=== PATIENT | male | born 1985 | race Two or more races ===

== ENCOUNTER 2017-02-19 13:30 | Emergency (ER) | payer OTHER ==
[2017-02-19 13:48] VITALS: BP 126/87; PULSE 91; TEMP 98.3; BMI 38.0
[2017-02-19] MEDS ORDERED: IBUPROFEN 400 MG TABLET (FP) PO ONE (13:53)
[2017-02-19] MEDS ORDERED: IBUPROFEN 600 MG TABLET (FP) PO ONE (13:56)
--- NOTE | 2017-02-19 13:56 | PDOC ---
History of Present Illness - General Chief Complaint: Pain Stated Complaint: PAINFUL RIGHT WRIST Time Seen by Provider: 02/19/17 13:35 History Source: Patient Exam Limitations: No Limitations - History of Present Illness Initial Comments: 02/19/17 13:50 31y M no signficant pmhx presents for complaint of evaluation of R wrist pain. Pt states that approx 1 month ago, he had atraumatic R wrist pain/swelling - it was thought to be due to an infection so he was treadted with abx with improvement. The sypmtoms resolved, but 2 days ago, he started developing a bit of aching on his right wrist, and has gradually worsend. The pt notes a small bit of swelling but not as bad as 1 month ago. pt denies any recent trauma , injuries, heavy lifting. 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 pt denies any fever/chills, joint pain in other areas, back pain, n/v. no recent illnesses/uris. Past History - Past Medical History Allergies/Adverse Reactions: Allergies Allergy/AdvReac Type Severity Reaction Status Date / Time No Known Allergies Allergy Verified 02/19/17 13:32 Home Medications: Ambulatory Orders NK [No Known Home Medication] 02/19/17 Other medical history: DENIES - Immunization History Td Vaccination: No - Suicide/Smoking/Psychosocial Hx Smoking Status: No Smoking History: Current some day smoker Years of Tobacco Use: 0 Have you smoked in the past 12 months: Yes Number of Cigarettes Smoked Daily: 0 Cigars Per Day: 1 Information on smoking cessation initiated: Yes 'Breaking Loose' booklet given: 02/19/17 Hx Alcohol Use: Yes (SOCIAL) Drug/Substance Use Hx: No Substance Use Type: Alcohol Review of Systems - Review of Systems Able to Perform ROS?: Yes Comments:: 02/19/17 13:53 Constitutional - no reported Fever, Chills, HEENT: no reported vision changes, sore throat Respiratory: no reported cough, sob, hemoptysis Abd/GI: no reported abd pain, nausea, vomiting, Musculskelatal - +R wrist pain no reported back pain, joint swelling skin - no reported bruising, erythema, rash neurological: no reported headache, numbness, focal weakness, tingling, ataxia, hematologic: no reported anemia, easy bruising, easy bleeding *Physical Exam - Vital Signs Last Vital Signs Temp Pulse Resp BP Pulse Ox 98.3 F 91 H 16 126/87 97 02/19/17 13:32 02/19/17 13:32 02/19/17 13:32 02/19/17 13:32 02/19/17 13:32 - Physical Exam Comments: 02/19/17 13:54 GENERAL: The patient is awake, alert, and fully oriented, Nontoxic - in no acute distress. EXTREMITIES: Normal range of motion of upper extremities and lower extremities with the exception of wrist flexion of R hand, limited due to pain. +mild tenderness to palpation of R midwrist without any palable crepitus/lesions, no erythema/warmth, mild edema, pulses symmetric, sensation symmetric. SKIN: Warm, Dry, normal turgor, Medical Decision Making - Medical Decision Making 02/19/17 13:56 unclear cause of his wrist pain small effusion/swelling noted no erythema/warmth/induration to suggestive infective cause will ck xray will giv e motrin if persisetnt and neg xray, willhave pt fu with ortho 02/19/17 14:15 xray negative for acute pathology will recommend supportive measures and ortho fu if pain persistent/recurrnt return precautions were discussed I discussed the physical exam findings, ancillary test results and final diagnoses with the patient. I answered all of the patient's questions. The patient was satisfied with the care received and felt comfortable with the discharge plan and treatment plan. The patient will call their primary care physician within 24 hours to arrange follow-up and will return to the Emergency Department with any new, persistent or worsening symptoms. *DC/Admit/Observation/Transfer Diagnosis at time of Disposition: Right wrist pain - Discharge Dispostion Disposition: HOME Condition at time of disposition: Stable Admit: No - Referrals Referrals: Nghia Talbot MD [Staff Physician] - - Patient Instructions Printed Discharge Instructions: DI for Wrist Pain Additional Instructions: Return to the emergency department immediately with ANY new, persistent or worsening symptoms. Rest, avoid any heavy lifting/sports with your wrist. Take ibuprofen 400mg four times daily for 3-4 days. If the pain does not improve or worsens, follow up with your primary care doctor or an orthopedics for further evaluation. Results were discussed with you. Please make sure your doctor reviews the results of your emergency evaluation. If you had any xrays during your visit, it was read preliminarily by myself, a Radiologist will review it and if there are any additional findings we will call you. Print Language: IRISH
== END 2017-02-19 14:28 | disposition home or self-care (01) ==
LOC: FER 13:30
PROC: 2W3CX1Z Immobilization of Right Lower Arm using Splint (ICD-10-PCS; principal; 2017-02-19)
DX: M25.531 Pain in right wrist (principal)
CPT/HCPCS: 73110-TC-RT; 99282-25

== ENCOUNTER 2018-06-30 23:23 | Emergency (ER) | payer OTHER ==
--- NOTE | 2018-06-30 23:27 | PDOC ---
History of Present Illness - General History Source: Patient Exam Limitations: No Limitations - History of Present Illness Initial Comments: 06/30/18 23:55 The patient is a 32 year old male with no reported past medical history presents to the emergency department with right hand swelling. The patient presents with 1 day of right hand swelling that initially presents to the wrist. The patient reports the symptoms worsened into swelling and warmth over the hand The patient reports putting icy hot on the hand, without relief. The patient reports a similar incident in the past, which was caused by a toxic caterpillar, was treated with oral abx and topical cream. <Angela Montero - Last Filed: 06/30/18 23:54> <Yossi Spence - Last Filed: 07/01/18 05:36> - General Chief Complaint: Redness To Affected Area Stated Complaint: LT HAND REDNESS/SWELLING Time Seen by Provider: 06/30/18 23:27 Past History <Angela Montero - Last Filed: 06/30/18 23:54> - Immunization History Td Vaccination: No - Suicide/Smoking/Psychosocial Hx Smoking Status: No Smoking History: Current some day smoker Years of Tobacco Use: 0 Have you smoked in the past 12 months: Yes Number of Cigarettes Smoked Daily: 0 Cigars Per Day: 1 'Breaking Loose' booklet given: 02/19/17 Hx Alcohol Use: Yes (SOCIAL) Drug/Substance Use Hx: No Substance Use Type: Alcohol <Yossi Spence - Last Filed: 07/01/18 05:36> - Past Medical History Allergies/Adverse Reactions: Allergies Allergy/AdvReac Type Severity Reaction Status Date / Time No Known Allergies Allergy Verified 02/19/17 13:32 Home Medications: Ambulatory Orders Cephalexin [Keflex] 500 mg PO QID #40 capsule 06/30/18 Ibuprofen [Motrin -] 800 mg PO TID PRN #30 tablet 06/30/18 Review of Systems - Review of Systems Able to Perform ROS?: Yes Comments:: 06/30/18 23:55 General: No fevers or chills, no weakness, no weight loss Musculoskeletal: +right hand swelling, redness and warmth. No joint or muscle pain or swelling Skin: No rashes or easy bruising <Angela Montero - Last Filed: 06/30/18 23:54> *Physical Exam - Vital Signs Last Vital Signs Temp Pulse Resp BP Pulse Ox 98.8 F 87 16 133/88 96 06/30/18 23:32 06/30/18 23:32 06/30/18 23:32 06/30/18 23:32 06/30/18 23:32 - Physical Exam Comments: 06/30/18 23:54 General: Well-nourished well-developed individual, no acute distress Extremities: +Erythema, warmth, edema overlying the dorsal surface of the right hand, wrist and forearm. No cyanosis. Skin: No rashes. <Angela Montero - Last Filed: 06/30/18 23:54> Moderate Sedation - Procedure Monitoring Vital Signs: Procedure Monitoring Vital Signs Temperature 98.8 F 06/30/18 23:32 Pulse Rate 87 06/30/18 23:32 Respiratory Rate 16 06/30/18 23:32 Blood Pressure 133/88 06/30/18 23:32 O2 Sat by Pulse Oximetry (%) 96 06/30/18 23:32 <Angela Montero - Last Filed: 06/30/18 23:54> ED Treatment Course - Medications Given in the ED: ED Medications Discontinued Medications Generic Name Dose Route Start Last Admin Trade Name Freq PRN Reason Stop Dose Admin Cephalexin HCl 500 mg 06/30/18 23:36 06/30/18 23:41 Keflex - PO 06/30/18 23:37 500 mg ONCE ONE Administration Ibuprofen 800 mg 06/30/18 23:35 06/30/18 23:41 Motrin - PO 06/30/18 23:36 800 mg ONCE ONE Administration <Angela Montero - Last Filed: 06/30/18 23:54> Medical Decision Making - Medical Decision Making 07/01/18 05:36 cellulitis cockup splint abx analgesia <Yossi Spence - Last Filed: 07/01/18 05:36> *DC/Admit/Observation/Transfer - Attestations Scribe Attestion: 06/30/18 23:54 Documentation prepared by Angela Montero, acting as medical coordinator pesticide use for Yossi Spence MD. <Angela Montero - Last Filed: 06/30/18 23:54> <Yossi Spence - Last Filed: 07/01/18 05:36> Diagnosis at time of Disposition: Cellulitis Qualifiers: Site of cellulitis: extremity Site of cellulitis of extremity: upper extremity Laterality: right Qualified Code(s): L03.113 - Cellulitis of right upper limb - Discharge Dispostion Disposition: HOME Condition at time of disposition: Stable - Prescriptions Prescriptions: Cephalexin [Keflex] 500 mg PO QID #40 capsule Ibuprofen [Motrin -] 800 mg PO TID PRN #30 tablet PRN Reason: Pain - Patient Instructions Printed Discharge Instructions: DI for Cellulitis -- Adult
[2018-06-30 23:35] VITALS: BP 133/88; PULSE 87; TEMP 98.8; BMI 40.8
[2018-06-30] MEDS ORDERED: IBUPROFEN 400 MG TABLET (FP) PO ONE ×2 (23:35→23:39)
[2018-06-30] MEDS ORDERED: CEPHALEXIN MONOHYDRATE 500 MG CAPSULE (UD) PO ONE (23:36)
[2018-06-30] MEDS ORDERED: CEPHALEXIN MONOHYDRATE 500 MG CAPSULE (UD) ONE (23:40)
== END 2018-06-30 23:53 | disposition home or self-care (01) ==
LOC: FER 23:23
PROC: 2W3CX1Z Immobilization of Right Lower Arm using Splint (ICD-10-PCS; principal; 2018-06-30)
DX: L03.113 Cellulitis of right upper limb (principal); F17.210 Nicotine dependence, cigarettes, uncomplicated
CPT/HCPCS: 99281-25

== ENCOUNTER 2022-04-06 13:54 | Emergency (ER) | payer OTHER ==
[2022-04-06 14:10] VITALS: BP 127/83; PULSE 89; RESP 20; TEMP 99.1; BMI 40.1
[2022-04-06 15:15] LABS: ALBUMIN 4.2 g/dl (3.4-5.0); ALK PHOS 77 U/L (45-117); ANION GAP 8 MMOL/L (8-16); BILIRUBIN,TOTAL 0.4 mg/dl (0.2-1); CALCIUM 9.1 mg/dl (8.5-10); CHLORIDE 102 mmol/L (98-107); CO2 25 mmol/L (21-32); CREATININE 0.9 mg/dl (0.55-1.3); GLUCOSE,RANDOM 96 mg/dl (74-106); HEMATOCRIT 45.6 % (35.4-49); HEMOGLOBIN 15.3 G/dL (11.7-16.9); MCH 28.3 pg (25.7-33.7); MCHC 33.4 g/dl (32.0-35.9); MEAN CELL VOLUME 84.8 fl (80-96); MEAN PLT VOLUME 9.1 fl (7.5-11.1); PLATELET COUNT 235.5 10^3/uL (134-434); RBC 5.38 10^6/uL (4.00-5.60); RDW 13.9 % (11.9-15.9); SGOT/AST 23 U/L (15-37); SGPT/ALT 33 U/L (13-61); SODIUM 135 mmol/L (136-145); TOT PROT 7.1 g/dl (6.4-8.2)
[2022-04-06 15:33] LABS: PLATELET ESTIMATE ADEQUATE
[2022-04-06 16:49] LABS: N-TERMINAL BNP < 5.0 pg/ml (5-125)
== END 2022-04-06 16:24 | disposition home or self-care (01) ==
LOC: FER 13:54
DX: R06.02 Shortness of breath (principal)
CPT/HCPCS: 36415; 71046-TC-FY; 80053; 83880; 84484; 85027; 93005; 99285-25

== ENCOUNTER 2024-01-21 09:12 | Emergency (ER) | payer OTHER ==
[2024-01-21 09:19] VITALS: RESP 18; TEMP 98.2; BMI 40.6
[2024-01-21] MEDS ORDERED: ALBUTEROL SO4 2.5/IPRATROPIUM 0.5 INH SOL 3 ML VIAL.NEB. NEB ONE (09:26)
[2024-01-21] MEDS: ALBUTEROL SO4 2.5/IPRATROPIUM 0.5 INH SOL 3 ML VIAL.NEB. NEB ONE (09:55)
[2024-01-21 11:13] VITALS: PULSE 85
[2024-01-21 11:14] VITALS: BP 130/71
== END 2024-01-21 10:50 | disposition home or self-care (01) ==
LOC: FER 09:12
PROC: 3E0F7GC Introduction of Other Therapeutic Substance into Respiratory Tract, Via Natural or Artificial Opening (ICD-10-PCS; principal; 2024-01-21)
DX: R06.02 Shortness of breath (principal); Z20.822 Contact with and (suspected) exposure to COVID-19
CPT/HCPCS: 0241U-QW; 71046-TC-FY; 93005; 99285-25